=== PATIENT | female | born 1955 | race Caucasian/White ===

== ENCOUNTER 2018-12-20 16:23 | Emergency (ER) | payer MEDICARE ==
[~2018-12-20] VITALS: Ht 162.6 cm; Wt 80.9 kg
[2018-12-20] MEDS ORDERED: LORazepam 0.5 MG tablet PO ONE (16:55)
[2018-12-20 16:59] LABS: BASOPHILS % (AUTO) 0.3 % (0-1); EOSINOPHILS # (AUTO) 0.3 X10'3 (0-0.9); EOSINOPHILS % (AUTO) 4.6 % (0-6); HEMATOCRIT 45.6 % (35.0-45.0); HEMOGLOBIN 15.7 g/dl (12.0-16.0); LYMPHOCYTES % (AUTO) 30.4 % (21-51); MEAN CORPUSCULAR HEMOGLOBIN 33.2 PG (27.0-31.0); MEAN CORPUSCULAR HGB CONC 34.5 g/dL (33.0-36.5); MEAN CORPUSCULAR VOLUME 96.1 FL (78-98); MEAN PLATELET VOLUME 7.4 FL (7.4-10.4); MONOCYTES # (AUTO) 0.4 X10'3 (0-0.9); MONOCYTES % (AUTO) 6.5 % (2-12); NEUTROPHILS # (AUTO) 3.9 X10'3 (1.8-7.7); NEUTROPHILS % (AUTO) 58.2 % (42-75); PLATELET COUNT 241 X10'3 (140-440); RED BLOOD COUNT 4.75 X10'6 (4.20-5.60); RED CELL DISTRIBUTION WIDTH 12.8 % (11.5-14.5); WHITE BLOOD COUNT 6.6 X10'3 (4.5-11.0)
[2018-12-20 17:15] LABS: ALANINE AMINOTRANSFERASE 43 U/L (12-78); ALBUMIN 3.8 G/DL (3.4-5.0); ALKALINE PHOSPHATASE 75 IU/L (46-116); ANION GAP 10 (8-16); ASPARTATE AMINO TRANSFERASE 36 U/L (10-37); BILIRUBIN,TOTAL 0.4 MG/DL (0.1-1.0); BLOOD UREA NITROGEN 11 MG/DL (7-18); BUN/CREATININE RATIO 17.5 (6.6-38.0); CALCIUM 9.1 MG/DL (8.5-10.1); CHLORIDE 104 MMOL/L (99-107); CREATININE 0.63 MG/DL (0.40-0.90); GLUCOSE 102 MG/DL (70-104); POTASSIUM 3.6 MMOL/L (3.5-5.1); SODIUM 140 MMOL/L (135-145); TOTAL CARBON DIOXIDE 25.8 MMOL/L (24-32); TOTAL PROTEIN 7.6 G/DL (6.4-8.2); eGFR > 90 ML/MIN
[2018-12-20 17:28] LABS: PARTIAL THROMBOPLASTIN TIME 27 SECONDS (22-32)
[2018-12-20 18:14] VITALS: BP 168/84
== END 2018-12-20 18:17 | disposition home or self-care (01) ==
LOC: ER 16:24 → EDBD 16:24 → ER 18:17
DX: R00.2 Palpitations (principal); I10 Essential (primary) hypertension; Z88.5 Allergy status to narcotic agent
CPT/HCPCS: 36415; 71045; 80053; 84443; 84484; 85025; 85610; 85730; 93005; 99284

== ENCOUNTER 2022-09-15 21:03 | Inpatient (IN) | payer MEDICARE ==
[~2022-09-15] VITALS: Ht 162.6 cm; Wt 79.4 kg
[~2022-09-15 21:03] MED LIST: ASPI-1071 PO; NICO-631 TD; NITR0.4T51 SL
[2022-09-15 21:24] LABS: BASOPHILS # (AUTO) 0.1 X10'3 (0-0.2); BASOPHILS % (AUTO) 1.2 % (0-1); EOSINOPHILS # (AUTO) 0.2 X10'3 (0-0.9); EOSINOPHILS % (AUTO) 2.8 % (0-6); HEMATOCRIT 42.6 % (35.0-45.0); HEMOGLOBIN 14.5 g/dl (12.0-16.0); LYMPHOCYTES # (AUTO) 2.2 X10'3 (1.1-4.8); LYMPHOCYTES % (AUTO) 31.2 % (21-51); MEAN CORPUSCULAR VOLUME 97.2 FL (78-98); MEAN PLATELET VOLUME 7.2 FL (7.4-10.4); MONOCYTES # (AUTO) 0.5 X10'3 (0-0.9); MONOCYTES % (AUTO) 7.2 % (2-12); NEUTROPHILS % (AUTO) 57.6 % (42-75); PLATELET COUNT 225 X10'3 (140-440); RED BLOOD COUNT 4.38 X10'6 (4.20-5.60); WHITE BLOOD COUNT 6.9 X10'3 (4.5-11.0)
[2022-09-15 21:48] LABS: ALANINE AMINOTRANSFERASE 34 U/L (12-78); ALBUMIN 3.9 G/DL (3.4-5.0); ALBUMIN/GLOBULIN RATIO 1.1 (1.1-1.5); ALKALINE PHOSPHATASE 68 IU/L (46-116); ANION GAP 7 (8-16); ASPARTATE AMINO TRANSFERASE 32 U/L (10-37); BILIRUBIN,TOTAL 0.6 MG/DL (0.1-1.0); BLOOD UREA NITROGEN 7 MG/DL (7-18); BUN/CREATININE RATIO 11.7 (6.6-38.0); CALCIUM 9.9 MG/DL (8.5-10.1); CHLORIDE 107 MMOL/L (99-107); GLUCOSE 143 MG/DL (70-104); POTASSIUM 3.8 MMOL/L (3.5-5.1); SODIUM 141 MMOL/L (135-145); TOTAL CARBON DIOXIDE 27.1 MMOL/L (24-32); TOTAL PROTEIN 7.6 G/DL (6.4-8.2); eGFR > 90 ML/MIN
[2022-09-16] MEDS ORDERED: magnesium 4gm in 100ml NS 100 ML IV PRN (00:40)
[2022-09-16] MEDS ORDERED: mag hydrox/Alum hydrox/simeth 30ml oral suspension PO PRN (00:40)
[2022-09-16] MEDS ORDERED: heparin 10,000 units/1 ML INJ IV ONE (00:40)
[2022-09-16] MEDS ORDERED: acetaminophen 325mg tablet PO PRN (00:40)
[2022-09-16] MEDS ORDERED: potassium Cl 40MEQ/1/2NS 520ml 520 ML IV PRN (00:40)
[2022-09-16] MEDS ORDERED: ondansetron/PF 4mg/2ml inj IV PRN (00:40)
[2022-09-16] MEDS ORDERED: potassium Cl 20 mEq SR tablet PO PRN ×2 (00:40)
[2022-09-16] MEDS ORDERED: atorvastatin 20mg tablet PO SCH ×2 (00:50→08:00)
[2022-09-16] MEDS ORDERED: metoprolol tartrate 50mg tablet PO ONE (00:50)
[2022-09-16] MEDS: heparin 25,000 UNIT/250ml bag 250 ML IV PRN (01:57)
[2022-09-16] MEDS ORDERED: ATOR20TA PO (02:09)
[2022-09-16] MEDS ORDERED: METO-384 PO (02:14)
[2022-09-16] MEDS ORDERED: LISI20TA28 PO (02:14)
[2022-09-16] MEDS ORDERED: GLUC-253 PO (02:14)
[2022-09-16] MEDS ORDERED: CANNABIS (02:23)
[2022-09-16] MEDS ORDERED: focus factor PO (02:23)
[2022-09-16] MEDS ORDERED: [UNRECOGNIZED DRUG - OTHER] PO (02:23)
[2022-09-16] MEDS ORDERED: LORA-269 PO (02:23)
[2022-09-16] MEDS ORDERED: PSYL575P22 PO (02:23)
[2022-09-16] MEDS ORDERED: AMOX-580 PO (02:23)
[2022-09-16] MEDS ORDERED: LACT1CAP65 PO (02:23)
[2022-09-16] MEDS ORDERED: LORA-268 PO (04:05)
[2022-09-16] MEDS ORDERED: FAMO40TA7 PO (04:05)
[2022-09-16] MEDS ORDERED: ATOR20TA66 PO (04:05)
[2022-09-16] MEDS ORDERED: CEPH500C82 PO (04:05)
[2022-09-16] MEDS ORDERED: LISI30TA4 PO (04:05)
[2022-09-16] MEDS ORDERED: NITR0.4T51 SL (04:09)
[2022-09-16] MEDS ORDERED: ASPI-1397 PO (04:09)
[2022-09-16] MEDS ORDERED: famotidine 20mg tablet PO PRN (04:20)
--- NOTE | 2022-09-16 05:15 | NUR ---
PAGED DR LÓPEZ TO NOTIFY OF PT HR BELOW HER NORMAL OF 52-60 CURRENTLY HR OF 46-48/MIN WHILE SLEEPING.
--- NOTE | 2022-09-16 06:04 | NUR ---
DR LÓPEZ RETURNED PAGED. NOTIFIED DR LÓPEZ OF PT HR 52-58 WHILE AWAKE AND 42-48 WHILE SLEEPING. NO NEW ORDERS RECIEVED
[2022-09-16] MEDS: K and/or MAG REPLACEMENT MC SCH ×2 (07:42→19:11)
[2022-09-16] MEDS: lactobacillus rhamnosus 10,000 MMU CELLS/CAPSULE PO SCH (07:51)
[2022-09-16] MEDS: docusate sod 100mg capsule PO SCH ×2 (07:51→19:53)
[2022-09-16] MEDS: nicotine 14mg patch - 24hr TD SCH (07:52)
[2022-09-16] MEDS: lisinopril 10 MG tablet PO SCH (07:52)
[2022-09-16] MEDS: psyllium seed 5.8 gm packet (sugar-free) PO SCH (07:53)
[2022-09-16] MEDS: metoprolol succinate 25mg (24-HOUR) SR. Tablet PO SCH (07:53)
[2022-09-16] MEDS ORDERED: [UNRECOGNIZED DRUG - OTHER] PO SCH (08:00)
[2022-09-16] MEDS: heparin 10,000 units/1 ML INJ IV PRN (16:08)
[2022-09-16] MEDS: LORazepam 0.5 MG tablet PO PRN ×2 (16:10→19:53)
--- NOTE | 2022-09-16 16:33 | NUR ---
Patient in room U 3015. I have received report from Dorothea LE and had the opportunity to ask questions and assume patient care.Pt settled into room. Hep Gtt infusing at 1000 units per hour. Pt hungry snacks provided. Pt orientated to room. Denies further needs. Addendum: 09/16/22 at 1636 by Lita Ac RN Amended: Links added.
[2022-09-16 16:49] VITALS: BP 148/71
[2022-09-16 18:00] VITALS: BP 132/60
--- NOTE | 2022-09-16 18:20 | NUR ---
Problems reprioritized. Patient report given, questions answered & plan of care reviewed with Yanna LE. Bedside report completed.Pt watching TV. no distress. Addendum: 09/16/22 at 1821 by Lita Ac RN Amended: Links added.
[2022-09-16] MEDS: acetaminophen 325mg tablet PO PRN (19:55)
[2022-09-16 22:00] VITALS: BP 128/76
[2022-09-17] VITALS (18 sets, daily range): BP systolic 110–198; BP diastolic 42–109
[2022-09-17] MEDS: heparin 25,000 UNIT/250ml bag 250 ML IV PRN ×2 (05:10→19:15)
--- NOTE | 2022-09-17 06:13 | NUR ---
PAGER ID: [phone] MESSAGE: [id number] sade SBP 196 Can I have order for hydralazine iv. She is having CP, Jaw , back ,Left arm. EKG is being Taken. I will bring it to you. Lita FAITH
[2022-09-17] MEDS: nitroGLYCERIN 0.4mg SUBLingual tab SL SCH ×2 (06:16→06:27)
[2022-09-17] MEDS ORDERED: hydrALAZINE 20mg/ml inj. IV ONE (06:25)
[2022-09-17 06:32] LABS: BASOPHILS # (AUTO) 0.1 X10'3 (0-0.2); BASOPHILS % (AUTO) 1.9 % (0-1); EOSINOPHILS # (AUTO) 0.4 X10'3 (0-0.9); EOSINOPHILS % (AUTO) 6.3 % (0-6); HEMATOCRIT 43.9 % (35.0-45.0); HEMOGLOBIN 14.6 g/dl (12.0-16.0); LYMPHOCYTES # (AUTO) 2.3 X10'3 (1.1-4.8); LYMPHOCYTES % (AUTO) 38.7 % (21-51); MEAN CORPUSCULAR HEMOGLOBIN 32.6 PG (27.0-31.0); MEAN CORPUSCULAR HGB CONC 33.3 g/dL (33.0-36.5); MEAN CORPUSCULAR VOLUME 97.7 FL (78-98); MONOCYTES # (AUTO) 0.4 X10'3 (0-0.9); MONOCYTES % (AUTO) 6.9 % (2-12); NEUTROPHILS # (AUTO) 2.7 X10'3 (1.8-7.7); NEUTROPHILS % (AUTO) 46.2 % (42-75); PLATELET COUNT 229 X10'3 (140-440); RED BLOOD COUNT 4.49 X10'6 (4.20-5.60); RED CELL DISTRIBUTION WIDTH 12.1 % (11.5-14.5); WHITE BLOOD COUNT 5.9 X10'3 (4.5-11.0)
[2022-09-17 06:46] LABS: ALANINE AMINOTRANSFERASE 36 U/L (12-78); ALBUMIN 3.9 G/DL (3.4-5.0); ALBUMIN/GLOBULIN RATIO 1.1 (1.1-1.5); ALKALINE PHOSPHATASE 72 IU/L (46-116); ANION GAP 10 (8-16); ASPARTATE AMINO TRANSFERASE 49 U/L (10-37); BILIRUBIN,TOTAL 0.8 MG/DL (0.1-1.0); BLOOD UREA NITROGEN 10 MG/DL (7-18); BUN/CREATININE RATIO 18.9 (6.6-38.0); CALCIUM 9.7 MG/DL (8.5-10.1); CHLORIDE 105 MMOL/L (99-107); CREATININE 0.53 MG/DL (0.40-0.90); GLUCOSE 132 MG/DL (70-104); MAGNESIUM 1.9 MG/DL (1.5-2.4); POTASSIUM 3.6 MMOL/L (3.5-5.1); SODIUM 138 MMOL/L (135-145); TOTAL CARBON DIOXIDE 23.5 MMOL/L (24-32); TOTAL PROTEIN 7.5 G/DL (6.4-8.2); eGFR > 90 ML/MIN
[2022-09-17] MEDS ORDERED: nitroGLYCERIN 0.4mg/hour patch TD ONE (06:50)
--- NOTE | 2022-09-17 07:06 | NUR ---
Dr Mao Paged. Message: [phone] Dejuan Please call regarding symptomatic CP episode this A.M[facility]. Await call back. Pt pain free at this time. Nitro Patch 0.4mg applied to chest.
--- NOTE | 2022-09-17 07:13 | NUR ---
Patient in room PCU 3022. I have received report from Yanna LE and had the opportunity to ask questions and assume patient care.Pt having CP. Pain radiating to bilat jaw, back, Left arm, Pt coughing and SOB. Nitro SQ given. Ekg taken and shown to Dr Mariee. New orders taken. SBP 198 hydralazine 5mg iv given. Pain relieved with 2 ntg, SBP 135. Pt resting. States that was the worst episode she has had thus far.
[2022-09-17] MEDS: K and/or MAG REPLACEMENT MC SCH ×2 (08:00→20:00)
[2022-09-17] MEDS: lactobacillus rhamnosus 10,000 MMU CELLS/CAPSULE PO SCH (08:55)
[2022-09-17] MEDS: aspirin 81mg tab.chew PO SCH (08:55)
[2022-09-17] MEDS: lisinopril 10 MG tablet PO SCH (08:56)
[2022-09-17] MEDS: metoprolol succinate 25mg (24-HOUR) SR. Tablet PO SCH (08:56)
[2022-09-17] MEDS: psyllium seed 5.8 gm packet (sugar-free) PO SCH (08:57)
[2022-09-17] MEDS: docusate sod 100mg capsule PO SCH ×2 (08:57→20:39)
[2022-09-17] MEDS: nicotine 14mg patch - 24hr TD SCH (08:58)
[2022-09-17] MEDS ORDERED: verapamil 2.5 mg/ml inj IV ONE (11:32)
[2022-09-17] MEDS ORDERED: iohexol 350MG/ML 100ml bottle IV ONE ×2 (11:33→12:51)
[2022-09-17] MEDS ORDERED: LIDOcaine 1% (10mg/ml) 2ml vial ONE (11:33)
[2022-09-17] MEDS ORDERED: midazolam 1 mg/ML 2ml injection ONE (11:33)
[2022-09-17] MEDS ORDERED: fentaNYL/PF 50MCG/1 ML 2ML syringe ONE (11:33)
[2022-09-17] MEDS ORDERED: nitroGLYCERIN-Tridil 50MG/D5W 250 ML IV ONE (11:33)
[2022-09-17] MEDS ORDERED: heparin 1,000unit/ml 10ml vial 10 ML ONE (11:33)
--- NOTE | 2022-09-17 12:00 | NUR ---
Pt down to venture capitalist Addendum: 09/17/22 at 1219 by Lita Ac RN Amended: Links added.
--- NOTE | 2022-09-17 13:15 | NUR ---
Pt back to room. No discomfort at this time. No bleeding at radial cath site. Addendum: 09/17/22 at 1352 by Lita Ac RN Amended: Links added.
[2022-09-17] MEDS: normal saline 1000ml 1,000 ML IV SCH (13:30)
[2022-09-17] MEDS: LORazepam 0.5 MG tablet PO PRN ×2 (13:39→20:58)
[2022-09-17] MEDS: acetaminophen 325mg tablet PO PRN (13:40)
[2022-09-17] MEDS ORDERED: HYDROcodone/acetaminophen 10/325mg tab PO PRN (14:40)
[2022-09-17] MEDS ORDERED: HYDROcodone/acetaminophen 5mg/325mg tablet PO PRN (14:40)
--- NOTE | 2022-09-17 17:03 | NUR ---
Dr Fischer at bedside to discus CABG.
--- NOTE | 2022-09-17 18:41 | NUR ---
Problems reprioritized. Patient report given, questions answered & plan of care reviewed with Ana LE. Bedside report completed. radial band deflated and site without issue. Pt denies CP at this time. Addendum: 09/17/22 at 1843 by Lita Ac RN Amended: Links added.
[2022-09-17] MEDS: atorvastatin 20mg tablet PO SCH (20:39)
[2022-09-17 20:45] LABS: HEMATOCRIT 41.8 % (35.0-45.0); HEMOGLOBIN 14.2 g/dl (12.0-16.0); MEAN PLATELET VOLUME 7.3 FL (7.4-10.4); PLATELET COUNT 216 X10'3 (140-440); RED BLOOD COUNT 4.31 X10'6 (4.20-5.60); WHITE BLOOD COUNT 6.7 X10'3 (4.5-11.0)
[2022-09-17 20:52] LABS: ALBUMIN 3.8 G/DL (3.4-5.0); ANION GAP 9 (8-16); BLOOD UREA NITROGEN 11 MG/DL (7-18); CALCIUM 9.6 MG/DL (8.5-10.1); CHLORIDE 108 MMOL/L (99-107); CREATININE 0.55 MG/DL (0.40-0.90); GLUCOSE 120 MG/DL (70-104); POTASSIUM 3.9 MMOL/L (3.5-5.1); SODIUM 142 MMOL/L (135-145); TOTAL CARBON DIOXIDE 24.8 MMOL/L (24-32); eGFR > 90 ML/MIN
[2022-09-17] MEDS: heparin 10,000 units/1 ML INJ IV PRN (21:14)
[2022-09-18] MEDS: normal saline 1000ml 1,000 ML IV SCH ×3 (01:45→21:29)
[2022-09-18 02:00] VITALS: BP 107/49
[2022-09-18 03:52] LABS: BASOPHILS # (AUTO) 0.1 X10'3 (0-0.2); BASOPHILS % (AUTO) 1.5 % (0-1); EOSINOPHILS # (AUTO) 0.3 X10'3 (0-0.9); EOSINOPHILS % (AUTO) 4.8 % (0-6); HEMATOCRIT 40.2 % (35.0-45.0); HEMOGLOBIN 13.8 g/dl (12.0-16.0); LYMPHOCYTES # (AUTO) 1.9 X10'3 (1.1-4.8); LYMPHOCYTES % (AUTO) 33.5 % (21-51); MEAN CORPUSCULAR HEMOGLOBIN 33.2 PG (27.0-31.0); MEAN CORPUSCULAR HGB CONC 34.3 g/dL (33.0-36.5); MEAN CORPUSCULAR VOLUME 96.9 FL (78-98); MEAN PLATELET VOLUME 7.4 FL (7.4-10.4); MONOCYTES # (AUTO) 0.5 X10'3 (0-0.9); NEUTROPHILS % (AUTO) 52.2 % (42-75); PLATELET COUNT 203 X10'3 (140-440); RED BLOOD COUNT 4.15 X10'6 (4.20-5.60); RED CELL DISTRIBUTION WIDTH 12.2 % (11.5-14.5); WHITE BLOOD COUNT 5.8 X10'3 (4.5-11.0)
[2022-09-18 04:06] LABS: ALANINE AMINOTRANSFERASE 33 U/L (12-78); ALBUMIN 3.4 G/DL (3.4-5.0); ALKALINE PHOSPHATASE 62 IU/L (46-116); ANION GAP 6 (8-16); ASPARTATE AMINO TRANSFERASE 52 U/L (10-37); BILIRUBIN,TOTAL 0.8 MG/DL (0.1-1.0); BLOOD UREA NITROGEN 8 MG/DL (7-18); CALCIUM 9.2 MG/DL (8.5-10.1); CHLORIDE 109 MMOL/L (99-107); GLUCOSE 104 MG/DL (70-104); SODIUM 142 MMOL/L (135-145); TOTAL PROTEIN 6.8 G/DL (6.4-8.2); eGFR > 90 ML/MIN
--- NOTE | 2022-09-18 04:47 | NUR ---
MESSAGE TO MD: pt in rm [id number] Kye Rae has PTT level of 98. infusion has been stopped and will be on hold for 120mins per protocol. Ana rossi
--- NOTE | 2022-09-18 06:44 | NUR ---
report given to Maggie LE
[2022-09-18] MEDS ORDERED: ringers solution, lacted 1,000 ML IV ONE (07:30)
[2022-09-18] MEDS: psyllium seed 5.8 gm packet (sugar-free) PO SCH (08:00)
[2022-09-18] MEDS: K and/or MAG REPLACEMENT MC SCH ×2 (08:00→19:02)
[2022-09-18] MEDS: metoprolol succinate 25mg (24-HOUR) SR. Tablet PO SCH (09:14)
[2022-09-18] MEDS: docusate sod 100mg capsule PO SCH ×2 (09:14→19:30)
[2022-09-18] MEDS: nicotine 14mg patch - 24hr TD SCH (09:16)
[2022-09-18] MEDS: lactobacillus rhamnosus 10,000 MMU CELLS/CAPSULE PO SCH (09:16)
[2022-09-18] MEDS: lisinopril 10 MG tablet PO SCH (09:19)
[2022-09-18] MEDS: aspirin 81mg tab.chew PO SCH (09:20)
[2022-09-18] MEDS: LORazepam 0.5 MG tablet PO PRN ×3 (09:23→23:55)
[2022-09-18] MEDS: heparin 25,000 UNIT/250ml bag 250 ML IV PRN (13:04)
[2022-09-18 13:31] LABS: ABG BASE EXCESS 1.1 mmol/L (-2.0-2.0); ABG HCO3 25.3 mmol/L (22.0-26.0); ABG OXYGEN SATURATION 93.9 % (94-97); ABG PCO2 (T) 37.6 mmHg (32.0-45.0); ABG PO2 (T) 63.4 mmHg (75.0-100.0); ALLEN'S TEST POSITIVE; FCOHb 0.3 % (0.0-3.9); FO2Hb 93.6 % (94-97); PATIENT TEMPERATURE 36.4; TOTAL HEMOGLOBIN 14.3 G/dl (12.0-16.0)
[2022-09-18 18:00] VITALS: BP 114/62
--- NOTE | 2022-09-18 18:38 | NUR ---
Problems reprioritized. Patient report given, questions answered & plan of care reviewed with Pascual LE, patient stable at transfer of care.
[2022-09-18] MEDS ORDERED: MESSAGE TO NURSING PO ONE (18:50)
[2022-09-18] MEDS ORDERED: Insulin Reg/NS 100units/100mL 100 ML IV SCH (18:50)
[2022-09-18] MEDS ORDERED: insulin glargine (Lantus) pen - multi-dose SQ PRN (18:50)
[2022-09-18] MEDS ORDERED: dextrose 50%-water 50ml dispensing syringe IV PRN (18:50)
[2022-09-18] MEDS ORDERED: MESSAGE TO PHARMACY IJ ONE (18:50)
[2022-09-18] MEDS ORDERED: mupirocin 2% nasal ointment 1gm UD NS SCH (20:00)
[2022-09-18] MEDS: atorvastatin 20mg tablet PO SCH (20:01)
[2022-09-18 22:08] VITALS: BP 140/65
[2022-09-19] VITALS (23 sets, daily range): BP systolic 102–155; BP diastolic 47–74
[2022-09-19] MEDS ORDERED: cefazolin/dext.iso 2gm/50ml 50 ML IV ONE (05:30)
[2022-09-19] MEDS ORDERED: gabapentin 400mg capsule PO ONE (05:30)
[2022-09-19] MEDS: metoprolol succinate 25mg (24-HOUR) SR. Tablet PO SCH (05:41)
[2022-09-19] MEDS ORDERED: epiNEPHrine 1 mg/ml inj ONE (05:44)
[2022-09-19] MEDS ORDERED: ceFAZolin 1000mg inj ONE (05:45)
[2022-09-19 05:55] LABS: BASOPHILS # (AUTO) 0.1 X10'3 (0-0.2); EOSINOPHILS # (AUTO) 0.2 X10'3 (0-0.9); LYMPHOCYTES # (AUTO) 1.6 X10'3 (1.1-4.8); MEAN CORPUSCULAR HGB CONC 34.1 g/dL (33.0-36.5); WHITE BLOOD COUNT 4.4 X10'3 (4.5-11.0)
[2022-09-19 05:56] LABS: BASOPHILS % (AUTO) 1.8 % (0-1); EOSINOPHILS % (AUTO) 4.6 % (0-6); HEMATOCRIT 39.8 % (35.0-45.0); HEMOGLOBIN 13.6 g/dl (12.0-16.0); LYMPHOCYTES % (AUTO) 35.7 % (21-51); MEAN CORPUSCULAR HEMOGLOBIN 33.3 PG (27.0-31.0); MEAN CORPUSCULAR VOLUME 97.5 FL (78-98); MEAN PLATELET VOLUME 7.4 FL (7.4-10.4); MONOCYTES # (AUTO) 0.3 X10'3 (0-0.9); MONOCYTES % (AUTO) 7.1 % (2-12); NEUTROPHILS # (AUTO) 2.2 X10'3 (1.8-7.7); NEUTROPHILS % (AUTO) 50.8 % (42-75); PLATELET COUNT 191 X10'3 (140-440); RED BLOOD COUNT 4.08 X10'6 (4.20-5.60); RED CELL DISTRIBUTION WIDTH 11.9 % (11.5-14.5)
[2022-09-19] MEDS: Insulin Reg/NS 100units/100mL 100 ML IV SCH (06:00)
[2022-09-19] MEDS ORDERED: LORazepam 2 mg/ml vial IV ONE (06:00)
[2022-09-19] MEDS ORDERED: famotidine 20mg tablet PO ONE (06:00)
[2022-09-19 06:19] LABS: ALANINE AMINOTRANSFERASE 31 U/L (12-78); ALBUMIN 3.5 G/DL (3.4-5.0); ALBUMIN/GLOBULIN RATIO 1.1 (1.1-1.5); ALKALINE PHOSPHATASE 60 IU/L (46-116); ANION GAP 4 (8-16); ASPARTATE AMINO TRANSFERASE 34 U/L (10-37); BILIRUBIN,TOTAL 0.8 MG/DL (0.1-1.0); BLOOD UREA NITROGEN 8 MG/DL (7-18); BUN/CREATININE RATIO 15.4 (6.6-38.0); CALCIUM 9.3 MG/DL (8.5-10.1); CHLORIDE 109 MMOL/L (99-107); CREATININE 0.52 MG/DL (0.40-0.90); GLUCOSE 98 MG/DL (70-104); MAGNESIUM 1.9 MG/DL (1.5-2.4); SODIUM 143 MMOL/L (135-145); TOTAL CARBON DIOXIDE 29.7 MMOL/L (24-32); TOTAL PROTEIN 6.7 G/DL (6.4-8.2); eGFR > 90 ML/MIN
--- NOTE | 2022-09-19 06:25 | NUR ---
Patient in room PCU 1901Z. I have received report from Pascual LE and had the opportunity to ask questions and assume patient care. Pt is sitting low fowlers in bed and is resting comfortably. Pt on RA. No s/s of distress, no c/o pain at this time. Pt has Vanco, and LR running for pre-procedure CABG. Please see interventions. BLL, call light within reach, frequwntly used items in reach, frequent rounding, leg man socks on. Will continue to monitor.
--- NOTE | 2022-09-19 06:38 | NUR ---
Sx team is prepping Pt to bring down to Sx suite. Po Ativan administered, please see eMAR. Pt in good spirits, at bed side.
[2022-09-19] MEDS ORDERED: nitroGLYCERIN in D5W 50mg/250ml (Tridil) infusion IV ONE (06:50)
[2022-09-19] MEDS ORDERED: DOBUTamine/D5W 500mg/250ml premix IV ONE (06:50)
[2022-09-19] MEDS ORDERED: DOPamine/D5W 400mg/250ml bag IV ONE (06:50)
[2022-09-19] MEDS ORDERED: neostigmine methylsulfate 1 MG/ML 10ml vial ONE (06:50)
[2022-09-19] MEDS ORDERED: LIDOcaine 2% (20mg/ml) 5ml vial ONE (06:50)
[2022-09-19] MEDS ORDERED: sevoflurane 250ml liquid IH ONE (06:50)
[2022-09-19] MEDS ORDERED: MIDAZolam 1mg/ml 10ml vial ONE (07:05)
[2022-09-19] MEDS ORDERED: fentaNYL /PF 50mcg/ml 5ml ampule ONE ×3 (07:06→08:19)
[2022-09-19 07:36] LABS: ABG BASE EXCESS -2.3 mmol/L (-2.0-2.0); ABG HCO3 21.9 mmol/L (22.0-26.0); ABG OXYGEN SATURATION 99.7 % (94-97); ABG PO2 322.1 mmHg (75.0-100.0); CL (ABG) 109 mmol/L (99-107); FCOHb 0.5 % (0.0-3.9); FMetHb 0.3 % (0.0-1.5); FO2Hb 98.9 % (94-97); GLUCOSE (ABG) 111 mg/dl (70-104); IONIZED CA (ABG) 1.18 mmol/L (1.10-1.30); K (ABG) 3.9 mmol/L (3.5-5.1); TOTAL HEMOGLOBIN 12.9 G/dl (12.0-16.0)
[2022-09-19] MEDS: normal saline 1000ml 1,000 ML IV SCH (07:45)
[2022-09-19] MEDS ORDERED: BUPIVAcaine 0.5% inj/PF 30 ML ONE (07:51)
[2022-09-19] MEDS ORDERED: propofol inj 20 ML IV ONE (07:51)
[2022-09-19] MEDS ORDERED: rocuronium 10mg/ml inj IV ONE ×5 (07:51→11:11)
[2022-09-19] MEDS ORDERED: calcium chloride 100 MG/1 ML inj IV ONE (08:00)
[2022-09-19] MEDS ORDERED: magnesium 1 GM/2 ML inj ONE (08:00)
[2022-09-19] MEDS ORDERED: aminocaproic acid 250 MG/1 ML inj. ONE (08:00)
[2022-09-19] MEDS ORDERED: mannitol 12.5gm/50mL VIAL IV ONE (08:00)
[2022-09-19] MEDS ORDERED: albumin (human) 25% 100 ML IV solution IV ONE (08:00)
[2022-09-19] MEDS ORDERED: sodium bicarbonate (8.4%) 1 mEq/ml syringe ONE (08:00)
[2022-09-19] MEDS ORDERED: methylPREDNISolone sod succ 1000mg vial ONE (08:00)
[2022-09-19] MEDS ORDERED: heparin 10,000 units/1 ML INJ ONE (08:00)
[2022-09-19] MEDS ORDERED: potassium Cl 2 mEq/ml inj IV ONE (08:00)
[2022-09-19] MEDS ORDERED: LIDOcaine 2% (20 mg/ml) 5ml cardiac syringe ONE (08:00)
[2022-09-19] MEDS ORDERED: BUPIVAcaine 0.5% inj/PF 30 ml vial IJ ONE (08:11)
[2022-09-19 09:01] LABS: ABG BASE EXCESS VENOUS -2.9 mmol/L (-2.0 - 2.0); ABG HCO3 VENOUS 22.9 mmol/L (21.0-28.0); ABG PCO2 VENOUS 44.2 mmHg (38.0-51.0); ABG PO2 VENOUS 40.3 mmHg (25.0-35.0); CL (ABG) 107 mmol/L (99-107); FCOHb VENOUS 0.7 % (0.0- 3.9); FHHb VENOUS 25.7 %; FMetHb VENOUS 0.3 % (0.0 - 0.5); FO2Hb VENOUS 73.3 %; GLUCOSE (ABG) 106 mg/dl (70-104); IONIZED CA (ABG) 1.17 mmol/L (1.10-1.30); K (ABG) 4.1 mmol/L (3.5-5.1); TOTAL HEMOGLOBIN 12.3 G/dl (12.0-16.0)
[2022-09-19 09:47] LABS: ABG BASE EXCESS VENOUS -0.6 mmol/L (-2.0 - 2.0); ABG PCO2 VENOUS 39.2 mmHg (38.0-51.0); ABG PO2 VENOUS 50.1 mmHg (25.0-35.0); CL (ABG) 105 mmol/L (99-107); FCOHb VENOUS 0.6 % (0.0- 3.9); FHHb VENOUS 13.2 %; FMetHb VENOUS 0.3 % (0.0 - 0.5); FO2Hb VENOUS 85.9 %; GLUCOSE (ABG) 129 mg/dl (70-104); K (ABG) 3.4 mmol/L (3.5-5.1); TOTAL HEMOGLOBIN 9.3 G/dl (12.0-16.0)
[2022-09-19 09:58] LABS: ABG BASE EXCESS -3.2 mmol/L (-2.0-2.0); ABG HCO3 21.4 mmol/L (22.0-26.0); ABG OXYGEN SATURATION 99.6 % (94-97); ABG PCO2 36.8 mmHg (32.0-45.0); ABG PO2 506.2 mmHg (75.0-100.0); CL (ABG) 106 mmol/L (99-107); FCOHb 0.3 % (0.0-3.9); FMetHb 0.3 % (0.0-1.5); GLUCOSE (ABG) 126 mg/dl (70-104); IONIZED CA (ABG) 1.06 mmol/L (1.10-1.30); K (ABG) 4.9 mmol/L (3.5-5.1); TOTAL HEMOGLOBIN 9.4 G/dl (12.0-16.0)
[2022-09-19 10:42] LABS: ABG BASE EXCESS 0.1 mmol/L (-2.0-2.0); ABG HCO3 24.3 mmol/L (22.0-26.0); ABG OXYGEN SATURATION 99.5 % (94-97); ABG PCO2 37.4 mmHg (32.0-45.0); ABG PO2 406.8 mmHg (75.0-100.0); CL (ABG) 109 mmol/L (99-107); FCOHb 0.3 % (0.0-3.9); FMetHb 0.3 % (0.0-1.5); FO2Hb 98.9 % (94-97); GLUCOSE (ABG) 151 mg/dl (70-104); IONIZED CA (ABG) 1.03 mmol/L (1.10-1.30); TOTAL HEMOGLOBIN 9.5 G/dl (12.0-16.0)
[2022-09-19 11:18] LABS: ABG BASE EXCESS -1.5 mmol/L (-2.0-2.0); ABG HCO3 22.6 mmol/L (22.0-26.0); ABG OXYGEN SATURATION 99.4 % (94-97); ABG PCO2 35.6 mmHg (32.0-45.0); ABG PO2 374.4 mmHg (75.0-100.0); CL (ABG) 109 mmol/L (99-107); FCOHb 0.3 % (0.0-3.9); FMetHb 0.3 % (0.0-1.5); FO2Hb 98.8 % (94-97); GLUCOSE (ABG) 201 mg/dl (70-104); IONIZED CA (ABG) 1.05 mmol/L (1.10-1.30); K (ABG) 4.7 mmol/L (3.5-5.1); TOTAL HEMOGLOBIN 9.9 G/dl (12.0-16.0)
[2022-09-19 11:42] LABS: ABG BASE EXCESS 1.2 mmol/L (-2.0-2.0); ABG HCO3 24.8 mmol/L (22.0-26.0); ABG OXYGEN SATURATION 99.6 % (94-97); ABG PCO2 35.4 mmHg (32.0-45.0); ABG PO2 313.6 mmHg (75.0-100.0); CL (ABG) 107 mmol/L (99-107); FCOHb 0.6 % (0.0-3.9); FMetHb 0.3 % (0.0-1.5); FO2Hb 98.7 % (94-97); GLUCOSE (ABG) 215 mg/dl (70-104); IONIZED CA (ABG) 0.99 mmol/L (1.10-1.30); K (ABG) 5.5 mmol/L (3.5-5.1); TOTAL HEMOGLOBIN 8.6 G/dl (12.0-16.0)
[2022-09-19 12:41] LABS: ABG BASE EXCESS VENOUS -2.5 mmol/L (-2.0 - 2.0); ABG HCO3 VENOUS 24.2 mmol/L (21.0-28.0); ABG PCO2 VENOUS 51.2 mmHg (38.0-51.0); ABG PO2 VENOUS 42.3 mmHg (25.0-35.0); CL (ABG) 109 mmol/L (99-107); FCOHb VENOUS 0.6 % (0.0- 3.9); FHHb VENOUS 27.2 %; FMetHb VENOUS 0.3 % (0.0 - 0.5); FO2Hb VENOUS 71.9 %; GLUCOSE (ABG) 230 mg/dl (70-104); IONIZED CA (ABG) 1.24 mmol/L (1.10-1.30); K (ABG) 4.6 mmol/L (3.5-5.1)
[2022-09-19 12:43] LABS: ACTIVATED CLOTTING TIME 127 SEC (101-148)
[2022-09-19] MEDS ORDERED: sodium chloride 0.45% 1,000 ML IV SCH (13:35)
[2022-09-19] MEDS ORDERED: sodium phosphate inj. 15 MMOL in dextrose 5%-water 250 ML IV PRN (13:35)
[2022-09-19] MEDS ORDERED: metoclopramide 5 mg/ml inj IV PRN (13:35)
[2022-09-19] MEDS ORDERED: Neutra Phos packet PO PRN (13:35)
[2022-09-19] MEDS ORDERED: dextrose 50%-water 50ml dispensing syringe IV PRN (13:35)
[2022-09-19] MEDS ORDERED: albumin (Human) 5% 250ml 250 ML IV PRN (13:35)
[2022-09-19] MEDS ORDERED: potassium Cl 20 mEq SR tablet PO PRN (13:35)
[2022-09-19] MEDS ORDERED: bisacodyl 10mg suppository rectal RC PRN (13:35)
[2022-09-19] MEDS ORDERED: mineral oil 133ml enema RC PRN (13:35)
[2022-09-19] MEDS ORDERED: potassium CL 10mEq/100ml bag 100 ML IV PRN (13:35)
[2022-09-19] MEDS ORDERED: normal saline 250ml IV soln 250 ML IV PRN (13:35)
[2022-09-19] MEDS ORDERED: magnesium citrate 296ml oral solution PO PRN (13:35)
[2022-09-19] MEDS ORDERED: DOPamine 400mg/D5W 250ml 250 ML IV PRN (13:35)
[2022-09-19] MEDS ORDERED: insulin glargine (Lantus) pen - multi-dose SQ PRN (13:35)
[2022-09-19] MEDS ORDERED: ondansetron/PF 4mg/2ml inj IV PRN (13:35)
[2022-09-19] MEDS ORDERED: magnesium hydroxide 30ml (MOM) UD suspension PO PRN (13:35)
[2022-09-19] MEDS ORDERED: niCARDipine-NS 40mg/200ml IVPB 200 ML IV PRN (13:35)
[2022-09-19] MEDS ORDERED: potassium Cl 40MEQ/1/2NS 520ml 520 ML IV PRN (13:35)
[2022-09-19] MEDS ORDERED: DOBUTamine-DoBUTrex 500mg/D5W 250 ML IV PRN (13:35)
[2022-09-19] MEDS ORDERED: HYDROcodone/acetaminophen 10/325mg tab PO PRN ×2 (13:35)
[2022-09-19] MEDS ORDERED: Insulin Reg/NS 100units/100mL 100 ML IV SCH (13:35)
[2022-09-19] MEDS ORDERED: sodium phosphate inj. 30 MMOL in dextrose 5%-water 250 ML IV PRN (13:35)
[2022-09-19] MEDS ORDERED: potassium Cl 40MEQ/270ML bag 250 ML IV PRN (13:35)
[2022-09-19] MEDS ORDERED: nitroGLYCERIN-Tridil 50MG/D5W 250 ML IV PRN (13:35)
[2022-09-19] MEDS ORDERED: morphine 4 MG/ML inj SYRINge IV PRN (13:35)
[2022-09-19] MEDS ORDERED: magnesium 4gm in 100ml NS 100 ML IV PRN (13:35)
[2022-09-19] MEDS ORDERED: magnesium 2GM in 50ml NS 50 ML IV PRN (13:35)
--- NOTE | 2022-09-19 14:10 | NUR ---
Nutrition consult: Pt s/p CABG x 4 today, still intubated at this time. Pt would benefit from nutrition therapy education once appropriate following extubation. Noted most recent lipid panel per EMR (08/14/22) is WNL. Will continue to follow. Addendum: 09/19/22 at [address] Amended: Links added.
[2022-09-19 14:11] LABS: BASOPHILS % (AUTO) 0.3 % (0-1); EOSINOPHILS % (AUTO) 0.3 % (0-6); HEMATOCRIT 29.5 % (35.0-45.0); LYMPHOCYTES # (AUTO) 0.7 X10'3 (1.1-4.8); LYMPHOCYTES % (AUTO) 8.9 % (21-51); MEAN CORPUSCULAR HEMOGLOBIN 33.1 PG (27.0-31.0); MEAN CORPUSCULAR HGB CONC 33.8 g/dL (33.0-36.5); MEAN CORPUSCULAR VOLUME 97.8 FL (78-98); MEAN PLATELET VOLUME 7.3 FL (7.4-10.4); MONOCYTES # (AUTO) 0.2 X10'3 (0-0.9); MONOCYTES % (AUTO) 2.7 % (2-12); NEUTROPHILS # (AUTO) 6.7 X10'3 (1.8-7.7); NEUTROPHILS % (AUTO) 87.8 % (42-75); PLATELET COUNT 159 X10'3 (140-440); RED BLOOD COUNT 3.02 X10'6 (4.20-5.60); RED CELL DISTRIBUTION WIDTH 12.1 % (11.5-14.5); WHITE BLOOD COUNT 7.6 X10'3 (4.5-11.0)
[2022-09-19 14:26] LABS: APTT 31 SECONDS (22-32)
[2022-09-19 14:28] LABS: ALANINE AMINOTRANSFERASE 25 U/L (12-78); ALBUMIN 2.7 G/DL (3.4-5.0); ALBUMIN/GLOBULIN RATIO 1.2 (1.1-1.5); ALKALINE PHOSPHATASE 40 IU/L (46-116); ANION GAP 7 (8-16); ASPARTATE AMINO TRANSFERASE 45 U/L (10-37); BILIRUBIN,TOTAL 1.1 MG/DL (0.1-1.0); BLOOD UREA NITROGEN 7 MG/DL (7-18); CALCIUM 8.2 MG/DL (8.5-10.1); CHLORIDE 115 MMOL/L (99-107); CREATININE 0.54 MG/DL (0.40-0.90); GLUCOSE 153 MG/DL (70-104); MAGNESIUM 2.4 MG/DL (1.5-2.4); PHOSPHORUS 3.4 MG/DL (2.3-4.5); SODIUM 147 MMOL/L (135-145); TOTAL CARBON DIOXIDE 24.6 MMOL/L (24-32); TOTAL PROTEIN 4.9 G/DL (6.4-8.2); eGFR > 90 ML/MIN
[2022-09-19 14:30] LABS: POTASSIUM 3.6 MMOL/L (3.5-5.1)
--- NOTE | 2022-09-19 14:30 | NUR ---
Received to room 2010, accompanied by Lesley Blackmon and surgical crew. Placed on ventilator, to motel operator, arterial line and PA line pressure zeroed & monitored. Chest tubes to suction at 20 cm. Cash cath to gravity drainage. Dressings are dry and intact. See assessment record. All vasoactive drugs are infusing via central line. Provina dressing with air leak. Pressure held and additional tape applied to and working better. Right IJ leaking, pressure held and then pt cleaned, dressing removed and replace with sterile technique. Pt rolled side to side and linen removed. Tolerated well.
[2022-09-19] MEDS ORDERED: albumin (Human) 5% 250ml 250 ML IV ONE ×2 (16:50)
[2022-09-19] MEDS: potassium Cl 20mEq/100mL bag 100 ML IV PRN (17:25)
[2022-09-19] MEDS: ceFAZolin/D5W- 1GM premix 50 ML IV SCH ×2 (17:26→23:59)
--- NOTE | 2022-09-19 18:00 | NUR ---
MD & Family 1645 MD to see pt. Updated on pts condition. CO shot for new SVR. Albumin ordered and give. Family to see pt about 1715. Explained pts condition and plan of care.
--- NOTE | 2022-09-19 18:37 | NUR ---
Problems reprioritized. Patient report given, questions answered & plan of care reviewed with Opal RN. Provina/chest tube dressing changed per MD order with Opal's help. Tariq seems to be working well now. Pt was shaking, when asked if she was in pain she nodded yes. Opal covered pain.
[2022-09-19] MEDS: sennosides/docusate sodium tablet PO SCH (20:00)
[2022-09-19 20:05] LABS: HEMOGLOBIN 9.4 g/dl (12.0-16.0); RED BLOOD COUNT 2.86 X10'6 (4.20-5.60)
[2022-09-19 20:06] LABS: BASOPHILS % (AUTO) 0 % (0-1); EOSINOPHILS % (AUTO) 0 % (0-6); HEMATOCRIT 27.7 % (35.0-45.0); LYMPHOCYTES # (AUTO) 0.4 X10'3 (1.1-4.8); LYMPHOCYTES % (AUTO) 4.1 % (21-51); MEAN CORPUSCULAR HEMOGLOBIN 32.9 PG (27.0-31.0); MEAN CORPUSCULAR HGB CONC 33.9 g/dL (33.0-36.5); MEAN CORPUSCULAR VOLUME 97.1 FL (78-98); MEAN PLATELET VOLUME 7.6 FL (7.4-10.4); MONOCYTES # (AUTO) 0.2 X10'3 (0-0.9); MONOCYTES % (AUTO) 2.2 % (2-12); NEUTROPHILS # (AUTO) 8.8 X10'3 (1.8-7.7); NEUTROPHILS % (AUTO) 93.7 % (42-75); PLATELET COUNT 169 X10'3 (140-440); WHITE BLOOD COUNT 9.4 X10'3 (4.5-11.0)
[2022-09-19 20:12] LABS: ALBUMIN 3.5 G/DL (3.4-5.0); ANION GAP 9 (8-16); BLOOD UREA NITROGEN 9 MG/DL (7-18); BUN/CREATININE RATIO 15.8 (6.6-38.0); CALCIUM 8.7 MG/DL (8.5-10.1); CHLORIDE 114 MMOL/L (99-107); CREATININE 0.57 MG/DL (0.40-0.90); GLUCOSE 135 MG/DL (70-104); MAGNESIUM 2.3 MG/DL (1.5-2.4); PHOSPHORUS 3.6 MG/DL (2.3-4.5); SODIUM 147 MMOL/L (135-145); TOTAL CARBON DIOXIDE 23.9 MMOL/L (24-32); eGFR > 90 ML/MIN
[2022-09-19] MEDS: mupirocin 2% nasal ointment 1gm UD NS SCH (20:21)
[2022-09-19] MEDS: vancomycin/NS 1 GM ADD-VANTAGE 250 ML IV SCH (20:21)
[2022-09-19] MEDS: atorvastatin 10mg tablet PO SCH (21:22)
[2022-09-19] MEDS: gabapentin 300mg capsule PO SCH (21:23)
[2022-09-19 23:24] LABS: ABG BASE EXCESS -1.9 mmol/L (-2.0-2.0); ABG HCO3 22.5 mmol/L (22.0-26.0); ABG OXYGEN SATURATION 95.5 % (94-97); ABG PCO2 (T) 37.8 mmHg (32.0-45.0); ABG PO2 (T) 83.9 mmHg (75.0-100.0); FCOHb 0.3 % (0.0-3.9); FMetHb 0.1 % (0.0-1.5); FO2Hb 95.1 % (94-97); PATIENT TEMPERATURE 37.8; TOTAL HEMOGLOBIN 10.3 G/dl (12.0-16.0)
[2022-09-19] MEDS: morphine 2 MG/ML inj. syringe IV PRN (23:56)
[2022-09-20] VITALS (24 sets, daily range): BP systolic 81–130; BP diastolic 45–65
[2022-09-20] MEDS: morphine 2 MG/ML inj. syringe IV PRN ×4 (01:44→06:54)
[2022-09-20 02:53] LABS: BASOPHILS % (AUTO) 0.1 % (0-1); EOSINOPHILS % (AUTO) 0 % (0-6); HEMATOCRIT 26.8 % (35.0-45.0); HEMOGLOBIN 9.1 g/dl (12.0-16.0); LYMPHOCYTES # (AUTO) 0.5 X10'3 (1.1-4.8); LYMPHOCYTES % (AUTO) 5.4 % (21-51); MEAN CORPUSCULAR HGB CONC 33.8 g/dL (33.0-36.5); MEAN CORPUSCULAR VOLUME 97.4 FL (78-98); MONOCYTES # (AUTO) 0.5 X10'3 (0-0.9); MONOCYTES % (AUTO) 4.9 % (2-12); NEUTROPHILS # (AUTO) 8.7 X10'3 (1.8-7.7); NEUTROPHILS % (AUTO) 89.6 % (42-75); PLATELET COUNT 167 X10'3 (140-440); RED BLOOD COUNT 2.75 X10'6 (4.20-5.60); WHITE BLOOD COUNT 9.7 X10'3 (4.5-11.0)
[2022-09-20 03:13] LABS: ALANINE AMINOTRANSFERASE 27 U/L (12-78); ALBUMIN 3.3 G/DL (3.4-5.0); ALBUMIN/GLOBULIN RATIO 1.4 (1.1-1.5); ALKALINE PHOSPHATASE 35 IU/L (46-116); ANION GAP 7 (8-16); APTT 26 SECONDS (22-32); ASPARTATE AMINO TRANSFERASE 68 U/L (10-37); BILIRUBIN,TOTAL 0.6 MG/DL (0.1-1.0); BLOOD UREA NITROGEN 10 MG/DL (7-18); BUN/CREATININE RATIO 18.2 (6.6-38.0); CALCIUM 8.4 MG/DL (8.5-10.1); CHLORIDE 114 MMOL/L (99-107); CREATININE 0.55 MG/DL (0.40-0.90); GLUCOSE 105 MG/DL (70-104); MAGNESIUM 2.3 MG/DL (1.5-2.4); PHOSPHORUS 4.4 MG/DL (2.3-4.5); POTASSIUM 4.2 MMOL/L (3.5-5.1); SODIUM 147 MMOL/L (135-145); TOTAL PROTEIN 5.6 G/DL (6.4-8.2); eGFR > 90 ML/MIN
[2022-09-20] MEDS: potassium Cl 20mEq/100mL bag 100 ML IV PRN ×2 (05:16→06:27)
--- NOTE | 2022-09-20 06:09 | NUR ---
Problems reprioritized. Patient report given, questions answered & plan of care reviewed with ELVIS LE.
[2022-09-20] MEDS: Insulin Reg/NS 100units/100mL 100 ML IV SCH (06:29)
--- NOTE | 2022-09-20 06:30 | NUR ---
Patient in room CICU 2010. I have received report with Ene RN-S from Opal LE and had the opportunity to ask questions and assume patient care.
[2022-09-20] MEDS: aspirin 81mg tab.chew PO SCH (07:40)
[2022-09-20] MEDS: mupirocin 2% nasal ointment 1gm UD NS SCH ×2 (07:41→20:28)
[2022-09-20] MEDS: gabapentin 300mg capsule PO SCH ×3 (07:41→20:29)
[2022-09-20] MEDS: sennosides/docusate sodium tablet PO SCH ×2 (07:41→20:29)
[2022-09-20] MEDS: vancomycin/NS 1 GM ADD-VANTAGE 250 ML IV SCH ×2 (07:42→20:28)
[2022-09-20] MEDS: ceFAZolin/D5W- 1GM premix 50 ML IV SCH ×2 (07:42→16:05)
[2022-09-20] MEDS ORDERED: metoprolol tartrate 12.5mg (1/2 tablet) PO SCH (08:00)
[2022-09-20] MEDS ORDERED: acetaminophen w/codeine (30MG) #3 tablet PO PRN (09:20)
[2022-09-20] MEDS: ketorolac tromethamine 15mg/ml inj. IV SCH ×3 (09:56→20:28)
--- NOTE | 2022-09-20 11:42 | NUR ---
MD Visit Dr. Napier in about 10 am. Orders to remove S/G line, Art & leave pacer connected for 24 more hrs. Update on pts condition. PT to eval & treat pt. Pt up to chair with PT and RNs. Pain meds helping .
[2022-09-20] MEDS: pantoprazole 40mg Tablet.DR PO SCH (11:49)
[2022-09-20] MEDS ORDERED: ringers solution, lacted 1,000 ML IV SCH (12:15)
--- NOTE | 2022-09-20 13:18 | NUR ---
MD Call Pts BP low, called MD, updated on condition and orders received. Pt AOX4, sitting in chair and eating lunch.
--- NOTE | 2022-09-20 15:00 | NUR ---
Family visit Two sons and daughter in law visited for 20 min
--- NOTE | 2022-09-20 16:41 | NUR ---
Pt L leg dressing Removed dressing. Wounds well approximated and no drainage. Slight bruising around incisions with slight scabbing. Removed pt socks, sitting on bottom of bed.
--- NOTE | 2022-09-20 18:13 | NUR ---
Problems reprioritized. Patient report given, questions answered & plan of care reviewed with Opal LE. Student documentation: I have reviewed and agree with all interventions, assessments performed and documented by Ene SANCHEZS.
[2022-09-20] MEDS: atorvastatin 10mg tablet PO SCH (20:29)
[2022-09-20] MEDS: oxyCODONE/APAP 5-325mg tablet PO PRN (20:37)
[2022-09-21] VITALS (23 sets, daily range): BP systolic 88–132; BP diastolic 47–66
[2022-09-21] MEDS: ceFAZolin/D5W- 1GM premix 50 ML IV SCH (00:36)
[2022-09-21] MEDS: ketorolac tromethamine 15mg/ml inj. IV SCH ×2 (02:13→08:12)
[2022-09-21 02:36] LABS: BASOPHILS % (AUTO) 0.1 % (0-1); EOSINOPHILS % (AUTO) 0 % (0-6); HEMATOCRIT 23.7 % (35.0-45.0); HEMOGLOBIN 7.9 g/dl (12.0-16.0); LYMPHOCYTES # (AUTO) 1.1 X10'3 (1.1-4.8); LYMPHOCYTES % (AUTO) 9.6 % (21-51); MEAN CORPUSCULAR HEMOGLOBIN 32.8 PG (27.0-31.0); MEAN CORPUSCULAR HGB CONC 33.3 g/dL (33.0-36.5); MEAN CORPUSCULAR VOLUME 98.6 FL (78-98); MEAN PLATELET VOLUME 8.4 FL (7.4-10.4); MONOCYTES # (AUTO) 0.7 X10'3 (0-0.9); MONOCYTES % (AUTO) 6.3 % (2-12); NEUTROPHILS # (AUTO) 9.3 X10'3 (1.8-7.7); PLATELET COUNT 135 X10'3 (140-440); RED CELL DISTRIBUTION WIDTH 12.3 % (11.5-14.5); WHITE BLOOD COUNT 11.1 X10'3 (4.5-11.0)
[2022-09-21 02:50] LABS: ALBUMIN 2.8 G/DL (3.4-5.0); ANION GAP 2 (8-16); BLOOD UREA NITROGEN 16 MG/DL (7-18); BUN/CREATININE RATIO 30.8 (6.6-38.0); CHLORIDE 110 MMOL/L (99-107); CREATININE 0.52 MG/DL (0.40-0.90); GLUCOSE 172 MG/DL (70-104); MAGNESIUM 2.7 MG/DL (1.5-2.4); PHOSPHORUS 3.3 MG/DL (2.3-4.5); POTASSIUM 5.1 MMOL/L (3.5-5.1); SODIUM 140 MMOL/L (135-145); TOTAL CARBON DIOXIDE 27.8 MMOL/L (24-32); eGFR > 90 ML/MIN
--- NOTE | 2022-09-21 06:49 | NUR ---
Patient in room CICU 2010. I have received report from Opal LE and had the opportunity to ask questions and assume patient care.
[2022-09-21] MEDS: pantoprazole 40mg Tablet.DR PO SCH (08:12)
[2022-09-21] MEDS: sennosides/docusate sodium tablet PO SCH ×2 (08:12→20:30)
[2022-09-21] MEDS: aspirin 81mg tab.chew PO SCH (08:12)
[2022-09-21] MEDS: gabapentin 300mg capsule PO SCH ×2 (08:12→12:54)
[2022-09-21] MEDS: mupirocin 2% nasal ointment 1gm UD NS SCH (08:12)
[2022-09-21] MEDS ORDERED: potassium Cl 40MEQ/1/2NS 520ml 520 ML IV PRN (08:40)
[2022-09-21] MEDS ORDERED: potassium Cl 20 mEq SR tablet PO PRN ×2 (08:40)
[2022-09-21] MEDS ORDERED: magnesium 4gm in 100ml NS 100 ML IV PRN (08:40)
[2022-09-21] MEDS ORDERED: potassium Cl 20mEq/100mL bag 100 ML IV PRN (08:40)
[2022-09-21] MEDS ORDERED: potassium CL 10mEq/100ml bag 100 ML IV PRN (08:40)
[2022-09-21] MEDS ORDERED: furosemide 40mg/4ml inj IV ONE (08:50)
[2022-09-21] MEDS ORDERED: potassium Cl 40MEQ/270ML bag 270 ML IV PRN (09:25)
[2022-09-21] MEDS: oxyCODONE/APAP 5-325mg tablet PO PRN ×3 (09:47→23:18)
--- NOTE | 2022-09-21 10:05 | NUR ---
Nutrition consult: Pt post-op day 2 s/p CABG x 4 admit DX CAD and NSTEMI per EMR. PO 100% initial heart healthy meals now ~75-100% avg NCS diet post-op. Pt seen by RD for written/verbal high protein/HH diet eds w/ RD contact information provided. Pt is agreeable to banana Wilman smoothie BIDBD though would like first WL; PA notified. RD encouraged pt to contact dietitian's office if further nutrition questions/concerns. LBM 3/2 receiving routine Senna-S per EMR. Will monitor for further nutrition intervention needs. Rec: 1. advance to heart healthy diet 2. banana Wilman smoothie BIDBD; pending PA verification in EMR 3. routine bowel care 4. weekly wts Addendum: 09/21/22 at [address] Amended: Links added. Addendum: 09/21/22 at [address] Nutrition consult: Pt post-op day 2 s/p CABG x 4 admit DX CAD and NSTEMI per EMR. PO 100% initial heart healthy meals now ~75-100% avg NCS diet post-op meeting estimated needs. Pt seen by RD for written/verbal high protein/HH diet eds w/ RD contact information provided. Pt is agreeable to banana Wilman smoothie BIDBD though would like first WL; PA notified. RD encouraged pt to contact dietitian's office if further nutrition questions/concerns. LBM 3/2 receiving routine Senna-S per EMR. Will monitor for further nutrition intervention needs. Rec: 1. advance to heart healthy diet 2. banana Wilman smoothie BIDBD; pending PA verification in EMR 3. routine bowel care 4. weekly wts
[2022-09-21] MEDS ORDERED: albumin (Human) 5% 250ml 250 ML IV ONE ×2 (13:35→13:39)
[2022-09-21] MEDS ORDERED: amiodarone 150mg/dext, iso-os 100 ML IV ONE ×2 (13:35→13:39)
--- NOTE | 2022-09-21 13:45 | NUR ---
called Dr Greene in regards to patients rhythm change of afib from sinus with a rate in the 130-150's new orders 150mg amio over 30min 1mg/min gtt to follow send for electrolytes for mag and k 250mls of 5% albumin
[2022-09-21 14:07] LABS: ALANINE AMINOTRANSFERASE 25 U/L (12-78); ALBUMIN 3.2 G/DL (3.4-5.0); ALBUMIN/GLOBULIN RATIO 1.2 (1.1-1.5); ALKALINE PHOSPHATASE 39 IU/L (46-116); ANION GAP 5 (8-16); ASPARTATE AMINO TRANSFERASE 47 U/L (10-37); BILIRUBIN,TOTAL 0.6 MG/DL (0.1-1.0); BLOOD UREA NITROGEN 19 MG/DL (7-18); BUN/CREATININE RATIO 30.2 (6.6-38.0); CALCIUM 8.2 MG/DL (8.5-10.1); CHLORIDE 107 MMOL/L (99-107); CREATININE 0.63 MG/DL (0.40-0.90); GLUCOSE 157 MG/DL (70-104); MAGNESIUM 2.2 MG/DL (1.5-2.4); PHOSPHORUS 2.8 MG/DL (2.3-4.5); POTASSIUM 4.4 MMOL/L (3.5-5.1); SODIUM 139 MMOL/L (135-145); TOTAL CARBON DIOXIDE 27.1 MMOL/L (24-32); TOTAL PROTEIN 5.9 G/DL (6.4-8.2); eGFR > 90 ML/MIN
[2022-09-21] MEDS: amiodarone/D5 360MG/200ML BAG 200 ML IV SCH ×2 (14:24→19:05)
[2022-09-21] MEDS: magnesium 2GM in 50ml NS 50 ML IV PRN ×2 (16:01→20:31)
[2022-09-21] MEDS: JUVEN Smoothie Arginine/Glut./Ca2+Bmb (Juven 19.3pkt) 240ml cup PO SCH (17:30)
--- NOTE | 2022-09-21 18:21 | NUR ---
Problems reprioritized. Patient report given, questions answered & plan of care reviewed with Surendra LE.
--- NOTE | 2022-09-21 18:22 | NUR ---
Patient in room CICU 2010. I have received report from Dorothea Camarena RN and had the opportunity to ask questions and assume patient care.
--- NOTE | 2022-09-21 20:19 | NUR ---
Karthikeyan GERBER calling to check on patient status. States he wants to keep patient in ICU overnight. States to give 1 gm magnesium for level 2.2. Following MD orders. Will continue to monitor patient.
[2022-09-21] MEDS: magnesium Cl slow-release 64mg tablet PO SCH (20:30)
[2022-09-21] MEDS: atorvastatin 10mg tablet PO SCH (20:30)
[2022-09-22] VITALS (24 sets, daily range): BP systolic 84–119; BP diastolic 44–81
[2022-09-22] MEDS: Insulin Reg/NS 100units/100mL 100 ML IV SCH (00:40)
[2022-09-22] MEDS: amiodarone/D5 360MG/200ML BAG 200 ML IV SCH ×4 (01:08→16:59)
[2022-09-22 02:45] LABS: BASOPHILS % (AUTO) 0.3 % (0-1); EOSINOPHILS # (AUTO) 0.1 X10'3 (0-0.9); EOSINOPHILS % (AUTO) 0.9 % (0-6); HEMATOCRIT 23.7 % (35.0-45.0); HEMOGLOBIN 7.9 g/dl (12.0-16.0); LYMPHOCYTES # (AUTO) 2.2 X10'3 (1.1-4.8); LYMPHOCYTES % (AUTO) 24.6 % (21-51); MEAN CORPUSCULAR HEMOGLOBIN 32.7 PG (27.0-31.0); MEAN CORPUSCULAR HGB CONC 33.3 g/dL (33.0-36.5); MEAN CORPUSCULAR VOLUME 98.4 FL (78-98); MEAN PLATELET VOLUME 8.7 FL (7.4-10.4); MONOCYTES # (AUTO) 0.9 X10'3 (0-0.9); MONOCYTES % (AUTO) 9.9 % (2-12); NEUTROPHILS # (AUTO) 5.8 X10'3 (1.8-7.7); NEUTROPHILS % (AUTO) 64.3 % (42-75); PLATELET COUNT 132 X10'3 (140-440); RED BLOOD COUNT 2.41 X10'6 (4.20-5.60); RED CELL DISTRIBUTION WIDTH 12.2 % (11.5-14.5)
[2022-09-22 02:54] LABS: ALBUMIN 2.9 G/DL (3.4-5.0); ANION GAP 4 (8-16); BLOOD UREA NITROGEN 14 MG/DL (7-18); BUN/CREATININE RATIO 33.3 (6.6-38.0); CALCIUM 7.6 MG/DL (8.5-10.1); CHLORIDE 109 MMOL/L (99-107); CREATININE 0.42 MG/DL (0.40-0.90); GLUCOSE 127 MG/DL (70-104); MAGNESIUM 2.7 MG/DL (1.5-2.4); PHOSPHORUS 2.6 MG/DL (2.3-4.5); POTASSIUM 4.1 MMOL/L (3.5-5.1); SODIUM 142 MMOL/L (135-145); TOTAL CARBON DIOXIDE 29.4 MMOL/L (24-32); eGFR > 90 ML/MIN
[2022-09-22] MEDS: oxyCODONE/APAP 5-325mg tablet PO PRN (05:07)
--- NOTE | 2022-09-22 06:19 | NUR ---
Problems reprioritized. Patient report given, questions answered & plan of care reviewed with Dorothea Morfin RN.
--- NOTE | 2022-09-22 06:34 | NUR ---
Patient in room CICU 2010. I have received report from Ki LE and had the opportunity to ask questions and assume patient care.
[2022-09-22 06:41] LABS: ACT @ 1.70 U 254 SEC (193-297); ACT @ 2.84 U 375 SEC (260-420); BASELINE ACT 147 SEC (101-148); PATIENT WEIGHT 79.0k KG
[2022-09-22 07:06] LABS: ABG BASE EXCESS -1.5 mmol/L (-2.0-2.0); ABG HCO3 23.5 mmol/L (22.0-26.0); ABG OXYGEN SATURATION 96.5 % (94-97); ABG PCO2 (T) 40.9 mmHg (32.0-45.0); ABG PO2 (T) 90.4 mmHg (75.0-100.0); FCOHb 0.3 % (0.0-3.9); FMetHb 0.1 % (0.0-1.5); FO2Hb 96.1 % (94-97); PEEP 5 cm H2O; RESPIRATORY RATE 12 b/min; TIDAL VOLUME 550 mL; TOTAL HEMOGLOBIN 11.3 G/dl (12.0-16.0)
[2022-09-22] MEDS: JUVEN Smoothie Arginine/Glut./Ca2+Bmb (Juven 19.3pkt) 240ml cup PO SCH ×2 (07:30→17:37)
[2022-09-22] MEDS: pantoprazole 40mg Tablet.DR PO SCH (07:35)
[2022-09-22] MEDS: aspirin 81mg tab.chew PO SCH (07:57)
[2022-09-22] MEDS: sennosides/docusate sodium tablet PO SCH ×2 (07:57→20:02)
[2022-09-22] MEDS: magnesium Cl slow-release 64mg tablet PO SCH ×2 (08:00→20:00)
[2022-09-22] MEDS ORDERED: bisacodyl 10mg suppository rectal RC STA (08:56)
[2022-09-22] MEDS ORDERED: albumin (human) 25% 100ml IV 100 ML in normal saline 500ml IV soln 400 ML IV ONE (13:35)
[2022-09-22] MEDS ORDERED: amiodarone 150mg/dext, iso-os 100 ML IV ONE (13:35)
[2022-09-22] MEDS: albumin (Human) 5% 250ml 250 ML IV SCH ×2 (14:08→15:14)
--- NOTE | 2022-09-22 14:33 | NUR ---
Called Dr. Greene in regards to patients recent low systolic blood pressure and low MAP, new orders 500mls of 5% albumin and 150mg dose of amiodarone to run over 30min.
--- NOTE | 2022-09-22 18:15 | NUR ---
Patient in room CICU 2010. I have received report from Dorothea Camarena RN and had the opportunity to ask questions and assume patient care.
--- NOTE | 2022-09-22 18:17 | NUR ---
Problems reprioritized. Patient report given, questions answered & plan of care reviewed with Ki LE.
[2022-09-22] MEDS: atorvastatin 10mg tablet PO SCH (20:02)
[2022-09-22] MEDS: apixaban 5mg tablet PO SCH (20:02)
[2022-09-22] MEDS: acetaminophen 325mg tablet PO PRN (20:07)
[2022-09-23] VITALS (16 sets, daily range): BP systolic 96–133; BP diastolic 46–67
[2022-09-23] MEDS: acetaminophen 325mg tablet PO PRN ×4 (03:29→22:28)
[2022-09-23 03:44] LABS: BASOPHILS % (AUTO) 0.4 % (0-1); EOSINOPHILS # (AUTO) 0.1 X10'3 (0-0.9); EOSINOPHILS % (AUTO) 1.9 % (0-6); HEMATOCRIT 23.8 % (35.0-45.0); HEMOGLOBIN 7.9 g/dl (12.0-16.0); LYMPHOCYTES # (AUTO) 1.2 X10'3 (1.1-4.8); LYMPHOCYTES % (AUTO) 21.9 % (21-51); MEAN CORPUSCULAR HEMOGLOBIN 32.8 PG (27.0-31.0); MEAN CORPUSCULAR HGB CONC 33.4 g/dL (33.0-36.5); MEAN CORPUSCULAR VOLUME 98.5 FL (78-98); MEAN PLATELET VOLUME 8.4 FL (7.4-10.4); MONOCYTES # (AUTO) 0.5 X10'3 (0-0.9); MONOCYTES % (AUTO) 8.5 % (2-12); NEUTROPHILS # (AUTO) 3.6 X10'3 (1.8-7.7); NEUTROPHILS % (AUTO) 67.3 % (42-75); PLATELET COUNT 156 X10'3 (140-440); RED BLOOD COUNT 2.42 X10'6 (4.20-5.60); RED CELL DISTRIBUTION WIDTH 12.1 % (11.5-14.5); WHITE BLOOD COUNT 5.3 X10'3 (4.5-11.0)
[2022-09-23 03:53] LABS: ALBUMIN 3.3 G/DL (3.4-5.0); ANION GAP 6 (8-16); BLOOD UREA NITROGEN 9 MG/DL (7-18); BUN/CREATININE RATIO 18.4 (6.6-38.0); CALCIUM 8.5 MG/DL (8.5-10.1); CHLORIDE 107 MMOL/L (99-107); CREATININE 0.49 MG/DL (0.40-0.90); GLUCOSE 132 MG/DL (70-104); MAGNESIUM 2.2 MG/DL (1.5-2.4); PHOSPHORUS 2.6 MG/DL (2.3-4.5); POTASSIUM 4.4 MMOL/L (3.5-5.1); SODIUM 141 MMOL/L (135-145); TOTAL CARBON DIOXIDE 28.1 MMOL/L (24-32); eGFR > 90 ML/MIN
[2022-09-23] MEDS: amiodarone/D5 360MG/200ML BAG 200 ML IV SCH (04:21)
--- NOTE | 2022-09-23 06:14 | NUR ---
Problems reprioritized. Patient report given, questions answered & plan of care reviewed with Dorothea Morfin RN.
--- NOTE | 2022-09-23 06:38 | NUR ---
Patient in room CICU 2010. I have received report from Ki LE and had the opportunity to ask questions and assume patient care.
[2022-09-23] MEDS: magnesium Cl slow-release 64mg tablet PO SCH ×2 (07:42→19:31)
[2022-09-23] MEDS: apixaban 5mg tablet PO SCH ×2 (07:42→19:30)
[2022-09-23] MEDS: sennosides/docusate sodium tablet PO SCH ×2 (07:42→19:31)
[2022-09-23] MEDS: JUVEN Smoothie Arginine/Glut./Ca2+Bmb (Juven 19.3pkt) 240ml cup PO SCH ×2 (07:42→18:10)
[2022-09-23] MEDS: pantoprazole 40mg Tablet.DR PO SCH (07:42)
[2022-09-23] MEDS: aspirin 81mg tab.chew PO SCH (07:42)
--- NOTE | 2022-09-23 08:11 | NUR ---
Dr Greene by to round on patient, discussed labs meds and current status. Will change her over to PO amio and add nicotine patch. Dr. Greene is comfortable with her going up stairs to PCU with tele
[2022-09-23] MEDS: nicotine 14mg patch - 24hr TD SCH (09:50)
[2022-09-23] MEDS: amiodarone 200mg tablet PO SCH ×2 (09:50→19:30)
--- NOTE | 2022-09-23 13:46 | NUR ---
Patient in room CICU 2010. I have received report from Dorothea LE and had the opportunity to ask questions and assume patient care.
--- NOTE | 2022-09-23 18:44 | NUR ---
Problems reprioritized. Patient report given, questions answered & plan of care reviewed with Alfonzo LE, patient stable at transfer of care.
[2022-09-23] MEDS ORDERED: amiodarone 200mg tablet PO SCH (20:00)
[2022-09-23] MEDS: atorvastatin 10mg tablet PO SCH (21:26)
[2022-09-24] VITALS (7 sets, daily range): BP systolic 110–135; BP diastolic 49–70
[2022-09-24] MEDS: acetaminophen 325mg tablet PO PRN ×3 (03:47→13:18)
[2022-09-24 06:09] LABS: ALBUMIN 2.9 G/DL (3.4-5.0); ANION GAP 7 (8-16); BLOOD UREA NITROGEN 8 MG/DL (7-18); BUN/CREATININE RATIO 17.4 (6.6-38.0); CALCIUM 8.5 MG/DL (8.5-10.1); CHLORIDE 109 MMOL/L (99-107); CREATININE 0.46 MG/DL (0.40-0.90); GLUCOSE 112 MG/DL (70-104); PHOSPHORUS 3.4 MG/DL (2.3-4.5); SODIUM 143 MMOL/L (135-145); TOTAL CARBON DIOXIDE 27.1 MMOL/L (24-32); eGFR > 90 ML/MIN
[2022-09-24 06:11] LABS: BASOPHILS % (AUTO) 0.7 % (0-1); EOSINOPHILS # (AUTO) 0.2 X10'3 (0-0.9); HEMATOCRIT 23.2 % (35.0-45.0); LYMPHOCYTES # (AUTO) 1.1 X10'3 (1.1-4.8); LYMPHOCYTES % (AUTO) 19.7 % (21-51); MEAN CORPUSCULAR HEMOGLOBIN 33.8 PG (27.0-31.0); MEAN CORPUSCULAR HGB CONC 34.3 g/dL (33.0-36.5); MEAN CORPUSCULAR VOLUME 98.5 FL (78-98); MEAN PLATELET VOLUME 8.3 FL (7.4-10.4); MONOCYTES # (AUTO) 0.5 X10'3 (0-0.9); MONOCYTES % (AUTO) 8.9 % (2-12); NEUTROPHILS # (AUTO) 3.8 X10'3 (1.8-7.7); NEUTROPHILS % (AUTO) 67.7 % (42-75); PLATELET COUNT 180 X10'3 (140-440); RED BLOOD COUNT 2.36 X10'6 (4.20-5.60); RED CELL DISTRIBUTION WIDTH 12.3 % (11.5-14.5); WHITE BLOOD COUNT 5.7 X10'3 (4.5-11.0)
--- NOTE | 2022-09-24 06:39 | NUR ---
Problems reprioritized. Patient report given, questions answered & plan of care reviewed with Maggie LE.
[2022-09-24] MEDS: amiodarone/D5 360MG/200ML BAG 200 ML IV SCH (07:08)
[2022-09-24] MEDS: pantoprazole 40mg Tablet.DR PO SCH (07:30)
[2022-09-24] MEDS: JUVEN Smoothie Arginine/Glut./Ca2+Bmb (Juven 19.3pkt) 240ml cup PO SCH ×2 (07:30→17:30)
[2022-09-24] MEDS: apixaban 5mg tablet PO SCH ×2 (08:00→19:28)
[2022-09-24] MEDS: magnesium Cl slow-release 64mg tablet PO SCH ×2 (08:00→19:38)
[2022-09-24] MEDS: sennosides/docusate sodium tablet PO SCH ×2 (08:00→19:19)
[2022-09-24] MEDS: nicotine 14mg patch - 24hr TD SCH (08:43)
[2022-09-24] MEDS: aspirin 81mg tab.chew PO SCH (08:45)
[2022-09-24] MEDS: furosemide 40mg tablet PO SCH (08:45)
[2022-09-24] MEDS: amiodarone 200mg tablet PO SCH ×2 (08:47→19:28)
--- NOTE | 2022-09-24 19:01 | NUR ---
Problems reprioritized. Patient report given, questions answered & plan of care reviewed with Catherine RN, patient stable at transfer of care.
[2022-09-24] MEDS: atorvastatin 10mg tablet PO SCH (19:33)
[2022-09-24] MEDS: ondansetron 4mg rapidly disintigrating tab PO PRN (23:15)
[2022-09-24] MEDS: oxyCODONE/APAP 5-325mg tablet PO PRN (23:15)
[2022-09-25] MEDS: oxyCODONE/APAP 5-325mg tablet PO PRN ×4 (03:44→20:55)
[2022-09-25 04:30] VITALS: BP 125/68
[2022-09-25] MEDS: ondansetron 4mg rapidly disintigrating tab PO PRN ×2 (04:59→19:54)
[2022-09-25 06:17] LABS: ALBUMIN 2.9 G/DL (3.4-5.0); ANION GAP 7 (8-16); BLOOD UREA NITROGEN 12 MG/DL (7-18); BUN/CREATININE RATIO 28.6 (6.6-38.0); CALCIUM 8.5 MG/DL (8.5-10.1); CHLORIDE 104 MMOL/L (99-107); CREATININE 0.42 MG/DL (0.40-0.90); GLUCOSE 110 MG/DL (70-104); MAGNESIUM 1.8 MG/DL (1.5-2.4); PHOSPHORUS 4.2 MG/DL (2.3-4.5); POTASSIUM 3.7 MMOL/L (3.5-5.1); SODIUM 141 MMOL/L (135-145); TOTAL CARBON DIOXIDE 29.8 MMOL/L (24-32); eGFR > 90 ML/MIN
[2022-09-25] MEDS: JUVEN Smoothie Arginine/Glut./Ca2+Bmb (Juven 19.3pkt) 240ml cup PO SCH ×2 (07:30→17:37)
[2022-09-25 08:54] LABS: BASOPHILS # (AUTO) 0.1 X10'3 (0-0.2); BASOPHILS % (AUTO) 1.2 % (0-1); EOSINOPHILS # (AUTO) 0.3 X10'3 (0-0.9); EOSINOPHILS % (AUTO) 4.2 % (0-6); HEMOGLOBIN 8.1 g/dl (12.0-16.0); LYMPHOCYTES # (AUTO) 1.3 X10'3 (1.1-4.8); LYMPHOCYTES % (AUTO) 19.4 % (21-51); MEAN CORPUSCULAR HGB CONC 33.8 g/dL (33.0-36.5); MEAN CORPUSCULAR VOLUME 97.6 FL (78-98); MEAN PLATELET VOLUME 7.9 FL (7.4-10.4); MONOCYTES # (AUTO) 0.6 X10'3 (0-0.9); MONOCYTES % (AUTO) 8.8 % (2-12); NEUTROPHILS # (AUTO) 4.4 X10'3 (1.8-7.7); NEUTROPHILS % (AUTO) 66.4 % (42-75); PLATELET COUNT 238 X10'3 (140-440); RED BLOOD COUNT 2.46 X10'6 (4.20-5.60); RED CELL DISTRIBUTION WIDTH 12.4 % (11.5-14.5); WHITE BLOOD COUNT 6.7 X10'3 (4.5-11.0)
[2022-09-25] MEDS: amiodarone 200mg tablet PO SCH ×2 (08:54→19:53)
[2022-09-25] MEDS: apixaban 5mg tablet PO SCH ×2 (08:55→19:53)
[2022-09-25] MEDS: furosemide 40mg tablet PO SCH (08:56)
[2022-09-25] MEDS: aspirin 81mg tab.chew PO SCH (08:56)
[2022-09-25] MEDS: pantoprazole 40mg Tablet.DR PO SCH (08:56)
[2022-09-25] MEDS: magnesium Cl slow-release 64mg tablet PO SCH ×2 (08:57→20:00)
[2022-09-25] MEDS: nicotine 14mg patch - 24hr TD SCH (08:58)
[2022-09-25] MEDS: sennosides/docusate sodium tablet PO SCH ×2 (08:58→20:00)
[2022-09-25 11:24] VITALS: BP 121/61
[2022-09-25 16:29] VITALS: BP 116/65
[2022-09-25 18:00] VITALS: BP 127/80
[2022-09-25] MEDS: atorvastatin 10mg tablet PO SCH (19:54)
--- NOTE | 2022-09-25 22:27 | NUR ---
Pt. is awake alert oriented s/p CABG with sternal incision dry and intact. Pt. able to protect chest with hug pillow. Medicated for pain at incision site tolerated well. Pt is up to BS commode with assistance. Pt. declines to take laxatives and Mag at this time due to previous episodes of diarrhea. Plan for home discharge soon. Pt. would like to have pain med and nausea med for home use.
[2022-09-25 23:00] VITALS: BP 109/61
[2022-09-26] MEDS: oxyCODONE/APAP 5-325mg tablet PO PRN ×3 (01:00→12:10)
[2022-09-26 03:17] VITALS: BP 112/59
--- NOTE | 2022-09-26 06:06 | NUR ---
Medicated for incisional pain x3 overnight. Tolerated well. Noted low sats on room air 88% Placed on 02 2L NC sats are 96%. Pt. would like to go home with 02 and pain med and antiemetic as needed.
[2022-09-26 07:00] VITALS: BP 107/60
[2022-09-26] MEDS ORDERED: LOP25T PO (07:24)
[2022-09-26] MEDS ORDERED: AMIO200T67 PO (07:24)
[2022-09-26] MEDS ORDERED: APIX5TAB3 PO (07:24)
[2022-09-26] MEDS ORDERED: PER5325T PO (07:24)
[2022-09-26] MEDS ORDERED: ONDA4TAB12 PO (07:26)
[2022-09-26 07:49] LABS: ALBUMIN 3.3 G/DL (3.4-5.0); ANION GAP 4 (8-16); BLOOD UREA NITROGEN 11 MG/DL (7-18); BUN/CREATININE RATIO 19.6 (6.6-38.0); CALCIUM 9.2 MG/DL (8.5-10.1); CHLORIDE 102 MMOL/L (99-107); CREATININE 0.56 MG/DL (0.40-0.90); GLUCOSE 110 MG/DL (70-104); PHOSPHORUS 4.5 MG/DL (2.3-4.5); POTASSIUM 3.6 MMOL/L (3.5-5.1); SODIUM 139 MMOL/L (135-145); eGFR > 90 ML/MIN
[2022-09-26] MEDS: JUVEN Smoothie Arginine/Glut./Ca2+Bmb (Juven 19.3pkt) 240ml cup PO SCH (07:58)
[2022-09-26] MEDS: nicotine 14mg patch - 24hr TD SCH (07:58)
[2022-09-26] MEDS: sennosides/docusate sodium tablet PO SCH (08:01)
[2022-09-26] MEDS: furosemide 40mg tablet PO SCH (08:01)
[2022-09-26] MEDS: pantoprazole 40mg Tablet.DR PO SCH (08:02)
[2022-09-26] MEDS: aspirin 81mg tab.chew PO SCH (08:02)
[2022-09-26] MEDS: amiodarone 200mg tablet PO SCH (08:02)
[2022-09-26] MEDS: magnesium Cl slow-release 64mg tablet PO SCH (08:02)
[2022-09-26] MEDS: apixaban 5mg tablet PO SCH (08:02)
[2022-10-02] MEDS ORDERED: OXYC-145 PO (21:14)
== END 2022-09-26 12:39 | disposition home health service (06) | DRG 233 ==
LOC: ER 21:04 → ED HOLD 09-16 00:42 → PCU 3S 09-16 16:25 → CICU 2S 09-19 08:38 → PCU 3S 09-23 14:02
PROVIDERS: ADMIT Family Medicine; ATTEND Family Medicine
PROC: 4A023N7 Measurement of Cardiac Sampling and Pressure, Left Heart, Percutaneous Approach (ICD-10-PCS; principal; 2022-09-17)
PROC: B2110ZZ Fluoroscopy of Multiple Coronary Arteries using High Osmolar Contrast (ICD-10-PCS; 2022-09-17)
PROC: 30233R1 Transfusion of Nonautologous Platelets into Peripheral Vein, Percutaneous Approach (ICD-10-PCS; 2022-09-19)
PROC: 02100Z9 Bypass Coronary Artery, One Artery from Left Internal Mammary, Open Approach (ICD-10-PCS; 2022-09-22)
PROC: 021209W Bypass Coronary Artery, Three Arteries from Aorta with Autologous Venous Tissue, Open Approach (ICD-10-PCS; 2022-09-22)
PROC: 06BQ4ZZ Excision of Left Saphenous Vein, Percutaneous Endoscopic Approach (ICD-10-PCS; 2022-09-22)
PROC: B24BZZ4 Ultrasonography of Heart with Aorta, Transesophageal (ICD-10-PCS; 2022-09-22)
PROC: 5A1221Z Performance of Cardiac Output, Continuous (ICD-10-PCS; 2022-09-22)
PROC: 0W9B3ZZ Drainage of Left Pleural Cavity, Percutaneous Approach (ICD-10-PCS; 2022-09-24)
DX: I21.4 Non-ST elevation (NSTEMI) myocardial infarction (principal); I50.23 Acute on chronic systolic (congestive) heart failure; D62 Acute posthemorrhagic anemia; I97.190 Other postprocedural cardiac functional disturbances following cardiac surgery; J91.8 Pleural effusion in other conditions classified elsewhere; I25.119 Atherosclerotic heart disease of native coronary artery with unspecified angina pectoris; I48.91 Unspecified atrial fibrillation; E78.5 Hyperlipidemia, unspecified; F10.10 Alcohol abuse, uncomplicated; F17.210 Nicotine dependence, cigarettes, uncomplicated; I11.0 Hypertensive heart disease with heart failure; I16.0 Hypertensive urgency; K21.9 Gastro-esophageal reflux disease without esophagitis; F41.9 Anxiety disorder, unspecified; Y83.9 Surgical procedure, unspecified as the cause of abnormal reaction of the patient, or of later complication, without mention of misadventure at the time of the procedure; Z90.710 Acquired absence of both cervix and uterus; Z79.899 Other long term (current) drug therapy; Z79.82 Long term (current) use of aspirin; I25.2 Old myocardial infarction; Y92.89 Other specified places as the place of occurrence of the external cause
CPT/HCPCS: 0232T; 32555; 93312; 93325; 93458; 99285; 36415; 36430; 36600; 71045; 80048; 80053; 82330; 82435; 82803; 82947; 82948; 83735; 83880; 84100; 84132; 84295; 84439; 84443; 84484; 85018; 85025; 85027; 85347; 85384; 85610; 85730; 86885; 86900; 86901; 86920; 87081; 93005; 93880; 93970; 94002; 94010; 94664; 94760; 97110; 97116; 97161; 97530; 97535; 99152; 99153; A4333; A4615; A4618; A6213; A6258; A6402; A6446; A6449; A7000; A7048; C1751; C1769; C1894; G0378; J0171; J0282; J0360; J0690; J1250; J1265; J1644; J1815; J1885; J1940; J2060; J2150; J2250; J2270; J2405; J2704; J2710; J2930; J3010; J3370; J3475; J3480; J3490; J7030; J7040; J7050; J7120; P9035; P9045; P9047; Q9967; S0020

== ENCOUNTER 2024-05-06 12:56 | Outpatient (CLI) | payer MEDICARE ==
[~2024-05-06 12:56] MED LIST changes: +AMIO200T67 PO; +APIX5TAB3 PO; -ASPI-1071 PO; +ASPI-1397 PO; +ATOR20TA66 PO; +FAMO40TA7 PO; +LACT1CAP65 PO; +LOP25T PO; +LORA-268 PO; -NITR0.4T51 SL; +ONDA-243 PO; +OXYC-145 PO; +PER5325T PO; +PSYL575P22 PO; +[UNRECOGNIZED DRUG - OTHER] PO; +iohexol 350 MG/ML 50ML vial IV ONE; +iohexol 350MG/ML 100ml bottle IV ONE
[2024-05-06 13:37] LABS: ALBUMIN 3.8 G/DL (3.4-5.0); ANION GAP 6 (8-16); BLOOD UREA NITROGEN 12 MG/DL (7-18); BUN/CREATININE RATIO 15.6 (10.0-20.0); CHLORIDE 102 MMOL/L (99-107); CREATININE 0.77 MG/DL (0.40-0.90); GLUCOSE 207 MG/DL (70-104); POTASSIUM 4.2 MMOL/L (3.5-5.1); SODIUM 138 MMOL/L (135-145); TOTAL CARBON DIOXIDE 29.8 MMOL/L (24-32); eGFR 74 ML/MIN
[2024-05-06] MEDS ORDERED: iohexol 350 MG/ML 50ML vial IV ONE (13:39)
== END 2024-05-06 23:59 | disposition home or self-care (01) ==
LOC: RAD 12:56
PROVIDERS: ATTEND Internal Medicine Interventional Cardiology
DX: I70.213 Atherosclerosis of native arteries of extremities with intermittent claudication, bilateral legs (principal); I25.810 Atherosclerosis of coronary artery bypass graft(s) without angina pectoris; I50.22 Chronic systolic (congestive) heart failure; I70.1 Atherosclerosis of renal artery
CPT/HCPCS: 36415; 75635; 80048; Q9967

== ENCOUNTER 2025-06-20 09:55 | Day surgery (SDC) | payer MEDICARE, OTHER ==
[2025-06-14 09:31] LABS: MEAN PLATELET VOLUME 7.3 FL (7.4-10.4); RED CELL DISTRIBUTION WIDTH 14.1 % (11.5-14.5)
[2025-06-14 09:43] LABS: APTT 30 SECONDS (22-32); INR 1.1 INR
[2025-06-14 09:44] LABS: CHOL/HDL RATIO 1.8 (0.00-4.99); CREATININE 0.81 MG/DL (0.40-0.90); LDL CHOLESTEROL 49 MG/DL (50-100); TOTAL CARBON DIOXIDE 29.8 MMOL/L (24-32); eGFR 70 ML/MIN
[~2025-06-20] VITALS: Ht 162.6 cm; Wt 78.9 kg
[2025-06-20] VITALS (7 sets, daily range): BP systolic 103–125; BP diastolic 56–70; PULSE 55–69; RESP 10–16; TEMP 98.7; O2SAT 97–98
[~2025-06-20 09:55] MED LIST changes: +ACET-1025 PO; +ALBU18HF2 INH; -AMIO200T67 PO; +AMIO200T72 PO; -ASPI-1397 PO; +ATOR-2 PO; -ATOR20TA66 PO; +CARV3.1244 PO; +EMPA10TA PO; +FAMO40TA58 PO; -FAMO40TA7 PO; +FLUT1BLS4 PO; +FURO20TA4 PO; +GLUC1TAB75 PO; -LACT1CAP65 PO; -LOP25T PO; +LOSA25TA41 PO; -NICO-631 TD; -ONDA-243 PO; -OXYC-145 PO; -PER5325T PO; -PSYL575P22 PO; +SPIR25TA5 PO; -[UNRECOGNIZED DRUG - OTHER] PO; +focus factor PO; -iohexol 350 MG/ML 50ML vial IV ONE; -iohexol 350MG/ML 100ml bottle IV ONE
[2025-06-20] MEDS ORDERED: normal saline 1000ml 1,000 ML IV SCH (10:20)
[2025-06-20] MEDS ORDERED: fentaNYL/PF 50MCG/1 ML 2ML syringe IV ONE (10:20)
[2025-06-20] MEDS ORDERED: MIDAZolam 1mg/ml 10ml vial IV ONE (10:20)
[2025-06-20] MEDS ORDERED: phenylephrine 10mg/ml inj. ONE (11:59)
[2025-06-20] MEDS ORDERED: amiodarone 50MG/ML inj IV ONE (11:59)
[2025-06-20] MEDS ORDERED: fentaNYL/PF 50MCG/1 ML 2ML syringe ONE ×2 (12:00→12:18)
[2025-06-20] MEDS ORDERED: atropine 0.1mg/ml 10ml syringe ONE (12:00)
[2025-06-20] MEDS ORDERED: midazolam 1 mg/ML 2ml injection ONE ×3 (12:00→12:18)
--- NOTE | 2025-06-20 12:54 | ELECTROCARDIOGRAPH REPORT ---
[facility] Test Date: 2025-06-20 Test Time: 12:52:07 Pat Name: LAUREEN RESENDIZ Department: [facility] Patient ID: [facility]-[id number] Room: Gender: F Tram Driver: MADY : 1955 Requested By: JAN MCLAUGHLIN Order Number: [id number] Reading MD: Dr. BIA Talbot Measurements Intervals [place] Rate: 54 P: 55 CA: 204 QRS: -36 QRSD: 160 T: 126 QT: 534 QTc: 507 Interpretive Statements Sinus bradycardia Atrial premature complex Probable left atrial enlargement Left bundle branch block Baseline wander in lead(s) V6 Electronically Signed On 06-20-2025 17:32:[address] BIA Talbot Please click the below link to view image of tracing.
--- NOTE | 2025-07-02 20:41 | CARDIOLOGY REPORT ---
DATE OF SERVICE: 06/20/2025 DICTATING PHYSICIAN: Pb Liz MD CARDIOVERSION DATE OF STUDY: 06/20/2025. PROCEDURE: The patient was brought to cardiac short stay where she was prepped in the usual manner. After gradual increments of Versed and fentanyl, and conscious sedation was obtained, the patient was cardioverted. The patient remained clinically and hemodynamically stable throughout the procedure. IMPRESSION: Successful electrical cardioversion to normal sinus rhythm without complication. Pb Liz MD TID: [id number] RECEIPT: [id number] FARIDA/EDDIE
== END 2025-06-20 14:00 | disposition home or self-care (01) ==
LOC: SSTAY O 09:55
PROVIDERS: ATTEND Student in an Organized Health Care Education/Training Program
DX: I48.91 Unspecified atrial fibrillation (principal); I49.1 Atrial premature depolarization; I44.7 Left bundle-branch block, unspecified; I11.0 Hypertensive heart disease with heart failure; I50.9 Heart failure, unspecified; I25.810 Atherosclerosis of coronary artery bypass graft(s) without angina pectoris; E78.00 Pure hypercholesterolemia, unspecified; J44.9 Chronic obstructive pulmonary disease, unspecified; I25.2 Old myocardial infarction; I42.0 Dilated cardiomyopathy; F32.A Depression, unspecified; I73.9 Peripheral vascular disease, unspecified; Z79.01 Long term (current) use of anticoagulants; Z79.899 Other long term (current) drug therapy; Z95.1 Presence of aortocoronary bypass graft; Z88.5 Allergy status to narcotic agent; Z88.8 Allergy status to other drugs, medicaments and biological substances
CPT/HCPCS: 36415; 80048; 80061; 85025; 85610; 85730; 92960; 93005; J2250; J3010; J7030; 99152; J0282; J0461; J2371